=== PATIENT | male | born 1965 | race Caucasian/White ===

== ENCOUNTER 2017-03-15 23:10 | Observation (INO) | payer MEDICARE ==
[2017-03-15 23:10] VITALS: BMI 35.2
[2017-03-15 23:40] LABS: BASO # 0.1 K/uL (0.0-0.2); BASO % 0.9 % (0.0-2.0); EOS # 0.2 K/uL (0.0-0.7); EOS % 3.3 % (0.0-4.0); HEMOGLOBIN 13.1 g/dL (12.0-18.0); LYMPH # 2.3 K/uL (1.0-4.3); LYMPH % 30.7 % (20.0-40.0); MEAN CELL VOLUME 87.3 fl (80.0-94.0); MEAN CORPUSCULAR HGB CONC 33.2 g/dL (33.0-37.0); MEAN PLATELET VOLUME 6.2 fl (7.2-11.7); MONO # 0.7 K/uL (0.0-0.8); NEUT # 4.2 K/uL (1.8-7.0); NEUT % 56.1 % (50.0-75.0); NRBC % 0.1 % (0.0-0.0); RBC 4.52 Mil/uL (4.40-5.90); RED CELL DISTRIBUTION WIDTH 12.8 % (11.5-14.5); WHITE BLOOD COUNT 7.5 K/uL (4.8-10.8)
[2017-03-15 23:59] LABS: ALB/GLOB RATIO 1.2 (1.0-2.1); ALBUMIN 4.5 g/dL (3.5-5.0); ALT/SGPT 51 U/L (21-72); AST/SGOT 34 U/L (17-59); BLOOD UREA NITROGEN 19 mg/dl (9-20); GFR AFRICAN-AMERICAN > 60; GFR NON-AFRICAN AMERICAN > 60
[2017-03-16 00:42] LABS: PARTIAL THROMBOPLASTIN TIME 31.1 Seconds (25.6-37.1); PROTHROMBIN TIME 11.7 Seconds (9.8-13.1)
--- NOTE | 2017-03-16 00:55 | ED PDOC ---
HPI: Chest Pain Time Seen by Provider: 03/15/17 23:24 Chief Complaint (Nursing): Chest Pain Past Medical History Vital Signs: Last Vital Signs Temp 97.7 F 03/16/17 02:28 Pulse 57 L 03/16/17 02:28 Resp 18 03/16/17 02:28 BP 132/80 03/16/17 02:28 Pulse Ox 96 03/16/17 02:28 - Medical History PMH: Anxiety, Depression - Family History Family History: States: Unknown Family Hx - Immunization History Hx Tetanus Toxoid Vaccination: No Hx Influenza Vaccination: No Hx Pneumococcal Vaccination: No - Home Medications Home Medications: Ambulatory Orders Medication Instructions Recorded Risperidone [Risperdal] 4 mg PO HS 05/11/16 Sertraline [Zoloft] 100 mg PO DAILY 05/11/16 risperiDONE [RisperDAL Tab] 0.5 mg PO DAILY 05/11/16 - Allergies Allergies/Adverse Reactions: Allergies Allergy/AdvReac Type Severity Reaction Status Date / Time naproxen Allergy Verified 05/11/16 21:37 - Laboratory Results Result Diagrams: 03/15/17 23:38 03/15/17 23:38 - ECG O2 Sat by Pulse Oximetry: 94 Medical Decision Making Medical Decision Makin: Labs reviewed. Chest x-ray showed no acute diseases. Patient is placed on ED observation for chest pain. Case was discussed with Dr. Flannery, medicine event specialist product demonstrator. Scribe Attestation: Documented by Kostas Reyes acting as a scribe for Amando Moreno MD. Provider Scribe Attestation: All medical record entries made by the Scribe were at my direction and personally dictated by me. I have reviewed the chart and agree that the record accurately reflects my personal performance of the history, physical exam, medical decision making, and the department course for this patient. I have also personally directed, reviewed, and agree with the discharge instructions and disposition. Disposition - Clinical Impression Clinical Impression: Chest pain Discussed With : Magnus Flannery Doctor Will See Patient In The: Hospital Counseled Patient/Family Regarding: Studies Performed, Diagnosis - Disposition Disposition Time: 00:45 Condition: FAIR - Pt Status Changed To: Hospital Disposition Of: Observation - POA Present On Arrival: None
[2017-03-16 01:33] LABS: BARBITURATES, UR NEGATIVE (NEGATIVE); BENZODIAZEPINES, UR NEGATIVE (NEGATIVE); OPIATES, UR NEGATIVE (NEGATIVE); PHENCYCLIDINE, UR NEGATIVE (NEGATIVE)
[2017-03-16 03:58] LABS: SQUAMOUS EPITHIAL < 1 /hpf (0-5); URINE BACTERIA RARE (<OCC); URINE BILIRUBIN NEGATIVE (NEGATIVE); URINE CLARITY CLEAR (Clear); URINE COLOR YELLOW (YELLOW); URINE GLUCOSE (UA) NEG (Normal); URINE HYALINE CAST 0-2 /hpf (0-2); URINE LEUKOCYTE ESTERASE NEG Leu/uL (Negative); URINE NITRATE NEGATIVE (NEGATIVE); URINE PROTEIN 30 mg/dL (NEGATIVE)
[2017-03-16 04:06] LABS: URINE BLOOD SMALL (NEGATIVE)
[2017-03-16 07:15] LABS: HEMOGLOBIN 12.9 g/dL (12.0-18.0); MEAN CELL VOLUME 87.6 fl (80.0-94.0); MEAN CORPUSCULAR HEMOGLOBIN 29.3 pg (27.0-31.0); MEAN CORPUSCULAR HGB CONC 33.4 g/dL (33.0-37.0); RBC 4.39 Mil/uL (4.40-5.90); RED CELL DISTRIBUTION WIDTH 12.7 % (11.5-14.5)
[2017-03-16 07:28] LABS: ALB/GLOB RATIO 1.2 (1.0-2.1); ALBUMIN 4.3 g/dL (3.5-5.0); ALT/SGPT 53 U/L (21-72); AST/SGOT 36 U/L (17-59); BLOOD UREA NITROGEN 21 mg/dl (9-20); CALCIUM 8.7 mg/dL (8.4-10.2); GFR AFRICAN-AMERICAN > 60; GFR NON-AFRICAN AMERICAN > 60
--- NOTE | 2017-03-16 08:45 | RAD ---
HISTORY: chest pain COMPARISON: None available. TECHNIQUE: Chest, one view. FINDINGS: Examination limited by habitus. LUNGS: Biapical pleural thickening. No focal consolidation. Please note that chest x-ray has limited sensitivity for the detection of pulmonary masses. PLEURA: No significant pleural effusion identified. No definite pneumothorax . CARDIOVASCULAR: Borderline cardiomegaly. OSSEOUS STRUCTURES: Degenerative changes of the spine. VISUALIZED UPPER ABDOMEN: Unremarkable. OTHER FINDINGS: None. IMPRESSION: Borderline cardiomegaly. Biapical pleural thickening.
[2017-03-16] MEDS ORDERED: Enoxaparin 40 mg Syringe SC SCH (09:00)
[2017-03-16 12:18] VITALS: RESP 18
--- NOTE | 2017-03-16 13:46 | CARD ---
APPROVED REPORT EKG Measurement Heart [id number] <Conclusion> Normal sinus rhythm Borderline ECG
[2017-03-16] MEDS ORDERED: Sodium Chloride 0.9% 100 ML ONE (14:57)
[2017-03-16] MEDS ORDERED: Iodixanol 320 MG/ML 100 ML BOTTLE IV ONE (14:57)
--- NOTE | 2017-03-16 16:01 | CT ---
CTA chest PE protocol Indication: Chest x-ray performed 03/16/17 Technique: Contiguous axial images were obtained through the chest with intravenous contrast enhancement. Sagittal and coronal reconstructions were generated and reviewed. This CT exam was performed using 1 or more of the falling dose reduction techniques: Automated exposure control, adjustment of the MAA and/or kV according to patient size, and/or use of iterative reconstruction technique. IV Contrast: 95 mL Visipaque Radiation dose (DLP): 445.04 MGy-cm. Comparison: Chest x-ray performed 03/16/17 Findings: Limited visualized portions of the inferior thyroid gland appear unremarkable. The mediastinal and hilar vascular structures appear within normal limits. The heart appears within normal limits of size. No large central or segmental pulmonary embolus evident. Bibasilar atelectasis. Mild mosaic profusion possibly the result of small airways/small vessels disease. No focal consolidation. No pleural effusion. No pneumothorax. No suspicious pulmonary nodules measuring greater than 5 mm. Limited visualized portions of the upper abdomen appear grossly unremarkable. Degenerative changes of the spine. Impression: Bibasilar atelectasis. Mild mosaic profusion possibly the result of small airways/small vessels disease. No large central or segmental pulmonary embolus identified.
[2017-03-16 19:52] VITALS: BP 120/76; PULSE 52; TEMP 97.6; O2SAT 97
[2017-03-16] MEDS ORDERED: RISPERIDONE 4 MG PO SCH (22:00)
--- NOTE | 2017-03-16 23:57 | CP.PCM.HP ---
History of Present Illness - History of Present Illness History of Present Illness: A 51 yr ols male with hx of bipolar disorder on meds came with c\o left side chest pain, dull,pinching,mostly localized .hx of similar complaints, last stress test was negative last year.denies SOB, ALSO Notes he was stressed out due to his car broke ,after that he started feeling this way. currently chest pain free, notes he has pain when he moves side to side. Present on Admission - Present on Admission Any Indicators Present on Admission: No Review of Systems - Constitutional Constitutional: Snoring. absent: Chills, Fatigue, Fever, Headache - EENT Eyes: absent: Other Visual Disturbances Nose/Mouth/Throat: absent: Post Nasal Drip, Dysphagia, Sore Throat - Cardiovascular Cardiovascular: Chest Pain, Chest Pain with Activity. absent: Dyspnea on Exertion, Palpitations, Pedal Edema - Respiratory Respiratory: absent: Cough, Dyspnea, Wheezing, Excessive Mucous Production - Gastrointestinal Gastrointestinal: absent: Abdominal Pain, Constipation, Nausea, Vomiting - Genitourinary Genitourinary: absent: Urinary Urgency - Musculoskeletal Musculoskeletal: absent: Arthralgias, Limited Range of Motion - Integumentary Integumentary: absent: Lesions - Neurological Neurological: Paresthesias. absent: Focal Weakness - Psychiatric Psychiatric: absent: Anhedonia, Hallucinations - Endocrine Endocrine: absent: Fatigue, Palpitations - Hematologic/Lymphatic Hematologic: absent: Easy Bleeding, Lymphadenopathy Past Patient History - Infectious Disease Hx of Infectious Diseases: None - Past Medical History & Family History Past Medical History?: Yes - Past Social History Smoking Status: Current Some Days Smoker - CARDIAC Hx Heart Attack: Yes (2015) Hx Hypertension: Yes - PULMONARY Hx Respiratory Disorders: No - NEUROLOGICAL Hx Neurological Disorder: No - HEENT Other/Comment: Left eye blind - RENAL Hx Chronic Kidney Disease: No - ENDOCRINE/METABOLIC Hx Endocrine Disorders: No - HEMATOLOGICAL/ONCOLOGICAL Hx Blood Disorders: No Hx AIDS: No Hx Human Immunodeficiency Virus (HIV): No - INTEGUMENTARY Hx Dermatological Problems: No - MUSCULOSKELETAL/RHEUMATOLOGICAL Hx Falls: No - GASTROINTESTINAL Hx Gastrointestinal Disorders: No - GENITOURINARY/GYNECOLOGICAL Hx Genitourinary Disorders: No - PSYCHIATRIC Hx Anxiety: Yes Hx Depression: Yes Hx Substance Use: No - SURGICAL HISTORY Hx Surgeries: No Other/Comment: left foot sx - ANESTHESIA Hx Anesthesia: Yes Hx Anesthesia Reactions: No Hx Malignant Hyperthermia: No Meds Allergies/Adverse Reactions: Allergies Allergy/AdvReac Type Severity Reaction Status Date / Time naproxen Allergy Verified 05/11/16 21:37 Physical Exam - Constitutional Appears: No Acute Distress - Head Exam Head Exam: ATRAUMATIC. absent: NORMAL INSPECTION, NORMOCEPHALIC - Eye Exam Eye Exam: EOMI, PERRL. absent: Normal appearance, Scleral icterus - ENT Exam ENT Exam: Normal Exam. absent: Mucous Membranes Moist - Neck Exam Neck exam: Negative for: Lymphadenopathy, Tenderness - Respiratory Exam Respiratory Exam: Rales, Rhonchi, NORMAL BREATHING PATTERN. absent: Wheezes - Cardiovascular Exam Cardiovascular Exam: REGULAR RHYTHM, +S1, +S2. absent: Systolic Murmur - GI/Abdominal Exam GI & Abdominal Exam: Normal Bowel Sounds, Soft. absent: Tenderness - Extremities Exam Extremities exam: Positive for: normal inspection, pedal pulses present. Negative for: pedal edema, tenderness - Back Exam Back exam: NORMAL INSPECTION, paraspinal tenderness - Neurological Exam Neurological exam: Alert, CN II-XII Intact, Normal Gait, Oriented x3 - Psychiatric Exam Psychiatric exam: Normal Affect, Normal Mood - Skin Skin Exam: Intact, Normal Color Results - Vital Signs Recent Vital Signs: Last Vital Signs Temp 97.6 F 03/16/17 19:51 Pulse 52 L 03/16/17 19:51 Resp 18 03/16/17 19:51 BP 120/76 03/16/17 19:51 Pulse Ox 97 03/16/17 19:51 - Labs Result Diagrams: 03/16/17 05:30 03/16/17 05:30 Labs: Laboratory Results - last 24 hr 03/16/17 03/16/17 03/16/17 01:13 05:30 05:30 WBC 6.0 RBC 4.39 L Hgb 12.9 Hct 38.5 MCV 87.6 MCH 29.3 MCHC 33.4 RDW 12.7 Plt Count 202 D-Dimer, Quantitative Sodium 140 Potassium 3.9 Chloride 103 Carbon Dioxide 25 Anion Gap 15 BUN 21 H Creatinine 0.9 Est GFR ( Amer) > 60 Est GFR (Non-Af Amer) > 60 Random Glucose 92 Calcium 8.7 Total Bilirubin 0.5 AST 36 ALT 53 Alkaline Phosphatase 101 Troponin I < 0.0120 Total Protein 7.8 Albumin 4.3 Globulin 3.5 Albumin/Globulin Ratio 1.2 Urine Color Yellow Urine Clarity Clear Urine pH 5.0 Ur Specific [place] 1.033 H Urine Protein 30 Urine Glucose (UA) Neg Urine Ketones Trace Urine Blood Small Urine Nitrate Negative Urine Bilirubin Negative Urine Urobilinogen 2.0 Ur Leukocyte Esterase Neg Urine RBC (Auto) 7 H Urine Microscopic WBC 1 Ur Squamous Epith Cells < 1 Urine Bacteria Rare Hyaline Casts 0-2 03/16/17 03/16/17 03/16/17 09:30 12:45 20:50 WBC RBC Hgb Hct MCV MCH MCHC RDW Plt Count D-Dimer, Quantitative 1099 H Sodium Potassium Chloride Carbon Dioxide Anion Gap BUN Creatinine Est GFR ( Amer) Est GFR (Non-Af Amer) Random Glucose Calcium Total Bilirubin AST ALT Alkaline Phosphatase Troponin I < 0.0120 < 0.0120 Total Protein Albumin Globulin Albumin/Globulin Ratio Urine Color Urine Clarity Urine pH Ur Specific [place] Urine Protein Urine Glucose (UA) Urine Ketones Urine Blood Urine Nitrate Urine Bilirubin Urine Urobilinogen Ur Leukocyte Esterase Urine RBC (Auto) Urine Microscopic WBC Ur Squamous Epith Cells Urine Bacteria Hyaline Casts Assessment & Plan (1) Chest pain Status: Acute Comment: D-Dimers. ct chest with PE protocol. trops\ EKG negative. 1 more negative (2) Bipolar 1 disorder Status: Chronic Decision To Admit - . Bed Request Type: Telemetry Admitting Physician: Magnus Flannery
--- NOTE | 2017-03-17 12:52 | CP.PCM.DIS ---
Provider - Provider Date of Admission: 03/16/17 00:46 Attending physician: Magnus Flannery MD Time Spent in preparation of Discharge (in minutes): 10 Diagnosis - Discharge Diagnosis (1) Chest pain Status: Acute Comment: CTCHEST- NEGATIVE FOR pe. advise to see cardiology\PMD. echo as out pt. (2) Bipolar 1 disorder Status: Chronic Hospital Course - Lab Results Lab Results: Most Recent Lab Values WBC 6.0 K/uL (4.8-10.8) 03/16/17 05:30 RBC 4.39 Mil/uL (4.40-5.90) L 03/16/17 05:30 Hgb 12.9 g/dL (12.0-18.0) 03/16/17 05:30 Hct 38.5 % (35.0-51.0) 03/16/17 05:30 MCV 87.6 fl (80.0-94.0) 03/16/17 05:30 MCH 29.3 pg (27.0-31.0) 03/16/17 05:30 MCHC 33.4 g/dL (33.0-37.0) 03/16/17 05:30 RDW 12.7 % (11.5-14.5) 03/16/17 05:30 Plt Count 202 K/uL (130-400) 03/16/17 05:30 MPV 6.2 fl (7.2-11.7) L 03/15/17 23:38 Neut % (Auto) 56.1 % (50.0-75.0) 03/15/17 23:38 Lymph % (Auto) 30.7 % (20.0-40.0) 03/15/17 23:38 [place] % (Auto) 9.0 % (0.0-10.0) 03/15/17 23:38 Eos % (Auto) 3.3 % (0.0-4.0) 03/15/17 23:38 Baso % (Auto) 0.9 % (0.0-2.0) 03/15/17 23:38 Neut # 4.2 K/uL (1.8-7.0) 03/15/17 23:38 Lymph # 2.3 K/uL (1.0-4.3) 03/15/17 23:38 [place] # 0.7 K/uL (0.0-0.8) 03/15/17 23:38 Eos # 0.2 K/uL (0.0-0.7) 03/15/17 23:38 Baso # 0.1 K/uL (0.0-0.2) 03/15/17 23:38 PT 11.7 Seconds (9.8-13.1) 03/15/17 23:38 INR 1.0 (0.9-1.2) 03/15/17 23:38 APTT 31.1 Seconds (25.6-37.1) 03/15/17 23:38 D-Dimer, Quantitative 1099 ng/mlDDU (0-230) H 03/16/17 09:30 Sodium 140 mmol/l (132-148) 03/16/17 05:30 Potassium 3.9 MMOL/L (3.6-5.0) 03/16/17 05:30 Chloride 103 mmol/L (98-107) 03/16/17 05:30 Carbon Dioxide 25 mmol/L (22-30) 03/16/17 05:30 Anion Gap 15 (10-20) 03/16/17 05:30 BUN 21 mg/dl (9-20) H 03/16/17 05:30 Creatinine 0.9 mg/dL (0.8-1.5) 03/16/17 05:30 Est GFR ( Amer) > 60 03/16/17 05:30 Est GFR (Non-Af Amer) > 60 03/16/17 05:30 Random Glucose 92 mg/dL (75-110) 03/16/17 05:30 Calcium 8.7 mg/dL (8.4-10.2) 03/16/17 05:30 Total Bilirubin 0.5 mg/dl (0.2-1.3) 03/16/17 05:30 AST 36 U/L (17-59) 03/16/17 05:30 ALT 53 U/L (21-72) 03/16/17 05:30 Alkaline Phosphatase 101 U/L (38-126) 03/16/17 05:30 Troponin I < 0.0120 ng/mL (0.00-0.120) 03/16/17 20:50 Total Protein 7.8 G/DL (6.3-8.2) 03/16/17 05:30 Albumin 4.3 g/dL (3.5-5.0) 03/16/17 05:30 Globulin 3.5 gm/dL (2.2-3.9) 03/16/17 05:30 Albumin/Globulin Ratio 1.2 (1.0-2.1) 03/16/17 05:30 Urine Color Yellow (YELLOW) 03/16/17 01:13 Urine Clarity Clear (Clear) 03/16/17 01:13 Urine pH 5.0 (5.0-8.0) 03/16/17 01:13 Ur Specific [place] 1.033 (1.003-1.030) H 03/16/17 01:13 Urine Protein 30 mg/dL (NEGATIVE) 03/16/17 01:13 Urine Glucose (UA) Neg mg/dL (Normal) 03/16/17 01:13 Urine Ketones Trace mg/dL (NEGATIVE) 03/16/17 01:13 Urine Blood Small (NEGATIVE) 03/16/17 01:13 Urine Nitrate Negative (NEGATIVE) 03/16/17 01:13 Urine Bilirubin Negative (NEGATIVE) 03/16/17 01:13 Urine Urobilinogen 2.0 mg/dL (0.2-1.0) 03/16/17 01:13 Ur Leukocyte Esterase Neg Junior/uL (Negative) 03/16/17 01:13 Urine RBC (Auto) 7 /hpf (0-3) H 03/16/17 01:13 Urine Microscopic WBC 1 /hpf (0-5) 03/16/17 01:13 Ur Squamous Epith Cells < 1 /hpf (0-5) 03/16/17 01:13 Urine Bacteria Rare (<OCC) 03/16/17 01:13 Hyaline Casts 0-2 /hpf (0-2) 03/16/17 01:13 Urine Opiates Screen Negative (NEGATIVE) 03/15/17 01:13 Urine Methadone Screen Negative (NEGATIVE) 03/15/17 01:13 Ur Barbiturates Screen Negative (NEGATIVE) 03/15/17 01:13 Ur Phencyclidine Scrn Negative (NEGATIVE) 03/15/17 01:13 Ur Amphetamines Screen Negative (NEGATIVE) 03/15/17 01:13 U Benzodiazepines Scrn Negative (NEGATIVE) 03/15/17 01:13 U Oth Cocaine Metabols Negative (NEGATIVE) 03/15/17 01:13 U Cannabinoids Screen Negative (NEGATIVE) 03/15/17 01:13 Alcohol, Quantitative < 10 mg/dl (0-10) 03/15/17 23:38 Discharge Exam - Head Exam Head Exam: ATRAUMATIC. absent: NORMAL INSPECTION, NORMOCEPHALIC Discharge Plan - Follow Up Plan Condition: FAIR Disposition: HOME/ ROUTINE
== END 2017-03-16 22:20 | disposition home or self-care (01) ==
LOC: H.ER 23:10 → H.ERHOLD 03-16 00:46 → H.TEL 03-16 02:22
PROVIDERS: ADMIT Internal Medicine; ATTEND Internal Medicine
DX: R07.89 Other chest pain (principal); F31.9 Bipolar disorder, unspecified; Z79.899 Other long term (current) drug therapy; F32.9 Major depressive disorder, single episode, unspecified; F41.9 Anxiety disorder, unspecified
CPT/HCPCS: 36415; 71010; 71275; 80053; 81003; 84484; 85025; 85027; 85378; 85610; 85730; 93005; 96372; 99282; G0378; G0480; J1650; Q9967